=== PATIENT | male | born 1990 | race Caucasian/White ===

== ENCOUNTER → 2016-08-24 | Outpatient (CLI) | payer OTHER ==
[2016-08-24 10:33] LABS: HIV ANTIBODY NEGATIVE (N); HIV-1 P24 ANTIGEN NEGATIVE (N)
[2016-08-26 07:17] LABS: HCV AB SCREEN Negative (Negative)
== END ==
LOC: LAB 09:40
PROVIDERS: ATTEND Family Medicine
DX: Z20.89 Contact with and (suspected) exposure to other communicable diseases (principal); Z57.8 Occupational exposure to other risk factors
CPT/HCPCS: 86703; 86803

== ENCOUNTER 2016-10-17 03:22 | Emergency (ER) | payer OTHER ==
--- NOTE | 2016-10-17 03:56 | PDOC ---
Body Fluid Exposure HPI - General Chief Complaint: Body Fluid Exposure Stated Complaint: Blood exposure Date Seen by Provider: 10/17/16 Time Seen by Provider: 03:45 Source: POSITIVE: Patient Exam Limitations: POSITIVE: No limitations Nurse's Notes Reviewed & Considered: Yes - History of Present Illness Initial Comments: The patient is a 26-year-old male who presents to the emergency department after an exposure to blood. 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 Earlier this evening he arrested a man who had multiple small lacerations and abrasions to both of his hands. The subject had blood all over his hands when he was arrested. The patient states that in the process of her resting this subject he did get his left hand soaked in the subject's blood. 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 He did not have any open wounds or cuts on his hand. He does not have any known history of hepatitis or HIV. The subject 2 whose blood he was exposed is not known to have hepatitis or HIV. Have you received a tetanus shot in the past 10 years?: No - Patient Home Medications Home Medications: Home Medications Melatonin 10 mg PO BEDTIME PRN 02/16/16 Se[place]-3 Fatty Acids [Fish Oil] 300 mg PO DAILY 02/16/16 - Patient Allergies Allergies/Adverse Reactions: Allergies Allergy/AdvReac Type Severity Reaction Status Date / Time Penicillins Allergy Mild RASH Verified 10/17/16 03:33 acetaminophen [From Percocet] AdvReac Mild NOT Verified 10/17/16 03:33 APPLICABLE oxycodone HCl [From Percocet] AdvReac Mild NOT Verified 10/17/16 03:33 APPLICABLE Past Medical History - heen HEENT History: Denies History Cardiovascular History: Hypertension Respiratory History: Denies History Gastrointestinal History: Denies History Genitourinary History: Denies History Endocrine History: Denies History Musculoskeletal History: Denies History Neurological History: Denies History Blood Disorders: Denies History Psychiatric History: Denies History History of Sexually Transmitted Diseases: No Cancer History: Denies History History of MDRO: No History of Other Communicable Diseases: No Alcohol Use: None Substance Use Type: None Previous Surgical History: Yes Type / Date of Surgery: LEFT FOOT SURGERY Significant Family History: Diabetes Past Medical History Reviewed: Reviewed - No Changes ROS - Limitations ROS Limitations: No Limitations (Review of systems otherwise noncontributory) Body Fluid Exposure PE - General Appearance General Appearance: REPORTS: Alert, No Acute Distress - HEENT HEENT: POSITIVE: Head Inspection Nml - Extremities Additional Extremities Details: Examination of his hands reveals no open wounds or cuts Body Fluid Exposure Progress - Patient's Progress MDM / ED Course: The patient had a baseline HIV as well as hepatitis B and C drawn here. He was advised to have his blood retested in one month, 2 months and 6 months just to ensure he did not have any exposure. Overall this is a very low risk exposure and post exposure prophylaxis was not recommended. - Consult Counseled: POSITIVE: Patient, RE: DX, RE: Need for F/U Patient Care Time - Estimated PCT Patient Care Time (In Minutes): 5 Vital Signs - VS Reviewed Vital Signs Reviewed: Yes Discharge Clinical Impression: Exposure to blood or body fluid Condition: Stable Patient Instructions Given at Discharge: Body Substance Exposure (ED) Additional Instructions: The exposure to blood on your left hand is a low risk exposure however I would recommend having baseline lab work testing to evaluate for HIV, hepatitis B and C done today as well as at one month, 2 months and 6 months from now just to ensure that there is not been the knee exposure. Follow Up With: JOAQUIM RUBY [Primary Care Provider] -
[2016-10-17 04:08] VITALS: TEMP 96.7
[2016-10-17 04:18] LABS: HIV ANTIBODY NEGATIVE (N); HIV-1 P24 ANTIGEN NEGATIVE (N)
[2016-10-17 04:33] VITALS: RESP 16
[2016-10-19 07:08] LABS: HEPATITIS B SURF AB QL Positive (())
== END 2016-10-17 04:25 | disposition home or self-care (01) ==
LOC: ER 03:22
DX: Z77.21 Contact with and (suspected) exposure to potentially hazardous body fluids (principal); Y99.0 Civilian activity done for income or pay
CPT/HCPCS: 86703; 86706; 87902; 99282

== ENCOUNTER → 2016-11-27 | Outpatient (CLI) | payer OTHER ==
[2016-11-27 09:34] LABS: HIV ANTIBODY NEGATIVE (N); HIV-1 P24 ANTIGEN NEGATIVE (N)
== END ==
LOC: LAB 08:14
PROVIDERS: ATTEND Family Medicine
DX: Z20.6 Contact with and (suspected) exposure to human immunodeficiency virus [HIV] (principal)
CPT/HCPCS: 36415; 86703